=== PATIENT | male | born 1955 | race Two or more races ===

== ENCOUNTER 2025-03-25 19:19 | Emergency (ER) | payer OTHER ==
[~2025-03-25] VITALS: Ht 165.1 cm; Wt 75.0 kg
--- NOTE | 2025-03-25 20:00 | ECG ---
[facility] Test Date: 2025-03-25 Test Time: 19:23:25 Pat Name: ALICIA SANDERS Department: [facility] ED Patient ID: [id number] Room: Gender: M Property Condition Assessor: KIKO : 1955 Requested By: EMERGENCY EMERGENCY Order Number: [id number] Reading MD: Niko Umanzor Measurements Intervals [place] Rate: 89 P: 44 [place]: 187 QRS: 68 QRSD: 94 T: 44 QT: 363 QTc: 442 Interpretive Statements Sinus rhythm Electronically Signed On 03-28-2025 17:05:02 PST by Niko Umanzor Please click the below link to view image of tracing.
--- NOTE | 2025-03-25 20:19 | DVH ---
CLINICAL INDICATION: pain after heavy lifting TECHNIQUE: 2 radiographic views of the lumbar spine.. . COMPARISON: None FINDINGS/IMPRESSION: There is no compressed vertebra. 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 There is straightening throughout the lumbar spine which may be secondary to patient positioning or muscle spasm.
--- NOTE | 2025-03-25 21:04 | ED.PDOC ---
History of Present Illness HPI Comments 69 y/o M is BIBA for c/c of nonradiating, lower back pain. Per EMS personnel report, patient endorses on ongoing pain following initial onset, this morning, after getting out of bed and lifting several heavy boxes. Denial of any recent falls or direct injuries to lower back area. No reported history of back pain. Patient received 100umg Fentanyl en route by EMS. Pain is, now, a 8/10 in severity. No further associated symptoms reported. 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 Past Medical History PAST MEDICAL HISTORY: Denies Surgical History: Denies all surgeries Family History Family History: Unknown Social History Smoker: Non-Smoker Alcohol: Denies ETOH Use Drugs: Denies Drug Use Lives In: Home All Other Systems: Reviewed and Negative (As per HPI) Physical Exam General Appearance: No Apparent Distress, Normal HEENT: Normal ENT Inspection, Pharynx Normal, TMs Normal Neck: Full Range of Motion, Non-Tender, Normal, Normal Inspection Respiratory: Chest Non-Tender, Lungs Clear, No Accessory Muscle Use, No Respiratory Distress, Normal Breath Sounds Cardiovascular: No Edema, No JVD, No Murmur, No Gallop, Normal Peripheral Pulses, Regular Rate/Rhythm Breast Exam: Deferred Gastrointestinal: No Organomegaly, Non Tender, No Pulsatile Mass, Normal Bowel Sounds, Soft Genitalia: Deferred Pelvic: Deferred Rectal: Deferred Extremities: No calf tenderness, Normal capillary refill, Normal inspection, Normal range of motion, Non-tender, No pedal edema Musculoskeletal : Location: Left Extremity Location: Back (lumbar region ) Apperance: Normal, Tenderness 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 Was a procedure done?: No Differential Dx Considerations may include: fractures, dislocations, sprain, strain, musculoskeletal pain, among others X-Ray, Labs, Meds, VS Vital Signs Date Time Temp Pulse Resp B/P (MAP) Pulse Ox O2 Delivery O2 Flow Rate FiO2 03/25/25 19:25 97.5 91 23 151/83 98 97.5 03/25/25 19:23 89 [facility] [id number] [place] [id number] Ph: [phone] DIAGNOSTIC IMAGING Diagnostic Imaging Report : [id number] Signed PATIENT: ALICIA SANDERS ACCT: [id number] UNIT: [id number] : 1955 LOC: ER ROOM / BED: / AGE / SEX: 69 / M ADM STATUS: REG ER SERVICE 41 ORDERING PHYSICIAN: ROBE GOLDSTEIN MD PROCEDURE(s): LUMB2 - LUMBAR SPINE 3 VIEW REASON: pain after heavy lifting ORDER NUMBER(s): [id number], ACCESSION NUMBER(s): [id number] CLINICAL INDICATION: pain after heavy lifting TECHNIQUE: 2 radiographic views of the lumbar spine.. . COMPARISON: None FINDINGS/IMPRESSION: There is no compressed vertebra. 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 There is straightening throughout the lumbar spine which may be secondary to patient positioning or muscle spasm. ATED BY: YAYO OSORIO Jr., DO DICTATED DATE/TIME: 03/25/252016 SIGNED BY: YAYO OSORIO Jr., DO SIGNED DATE/TIME: 03/25/252016 CC: Time of 1ST Reevaluation: 19:50 Reevaluation 1ST: Unchanged Patient Education/Counseling: Diagnosis, Treatment, Need For Follow Up Family Education/Counseling: No Family Present SEPSIS Sepsis Screen Date sepsis recognized/suspect: Mar 25, 2025 Time Sepsis recognized/suspect: 1927 Recent Procedure: No On Antibiotic Therapy: No Respiratory Rate >20: No Heart Rate >90: No Temp<36 C (96.8 F) or >38.3 C: No SBP <90 or MAP <65 mmHG: No New Acute Mental Status Change: No Is the patient on CPAP, BIPAP,: No Physician Orders Lumbar Spine 3 View (03/25/25 19:42) Urinalysis (03/25/25 19:42) Vital Signs Date Time Temp Pulse Resp B/P (MAP) Pulse Ox O2 Delivery O2 Flow Rate FiO2 03/25/25 19:25 97.5 91 23 151/83 98 97.5 03/25/25 19:23 89 Departure 1 Departure Disposition: 01 HOME / SELF CARE / HOMELESS Discharged With: Self Critical Care Note Critical Care Time?: No Stability Stability form required: No Heart Score Heart Score: Heart Score Response (Comments) Value History N/A 0 EKG N/A 0 Age N/A 0 Risk Factors N/A 0 Troponin N/A 0 Total 0 I personally scribed for DIXIE KOVACS PAC ([email or web address]) on 03/25/25 at 21:04. Electronically submitted by Kieran Kay [email or web address]). DIXIE KOVACS PAC Mar 25, 2025 21:04
[2025-03-25] MEDS: LORazepam 0.5 MG TAB PO ONE (21:14)
[2025-03-25] MEDS: HYDROcodone-ACET 10/325MG TAB PO ONE (21:14)
[2025-03-25 21:28] VITALS: TEMP 98.5
[2025-03-25 21:58] LABS: Urine Protein, UAD TRACE (Negative)
[2025-03-25] MEDS ORDERED: TIZA6CAP PO (22:44)
[2025-03-25] MEDS ORDERED: GABA300T4 PO (22:44)
[2025-03-26 00:26] VITALS: BP 140/78; PULSE 67; RESP 16; O2SAT 97
[2025-03-26] MEDS: KETOROLAC TROMETH 30 MG/ML 1ML VIAL IV ONE (00:38)
== END 2025-03-26 00:51 | disposition home or self-care (01) ==
LOC: EDBD 19:19 → ER 19:19
DX: S39.012A Strain of muscle, fascia and tendon of lower back, initial encounter (principal); X50.9XXA Other and unspecified overexertion or strenuous movements or postures, initial encounter; Y93.89 Activity, other specified; Y92.89 Other specified places as the place of occurrence of the external cause; Y99.8 Other external cause status
CPT/HCPCS: 72100; 81001; 93005; 96374; 99285; J1885